=== PATIENT | male | born 1980 | race African-American/Black ===

== ENCOUNTER 2017-10-04 16:42 | Emergency (ER) | payer OTHER ==
[2017-10-04 16:50] VITALS: BP 150/100; PULSE 92; TEMP 98.2; BMI 32.5
[2017-10-04] MEDS ORDERED: DIPHTH,PERTUSS(ACELL),TET 0.5 ML DISP.SYRIN IM ONE (16:51)
--- NOTE | 2017-10-04 16:51 | PDOC ---
Rapid Medical Evaluation Chief Complaint: Injury Time Seen by Provider: 10/04/17 16:49 Medical Evaluation: Allergies Allergy/AdvReac Type Severity Reaction Status Date / Time No Known Allergies Allergy Verified 10/04/17 16:47 10/04/17 16:49 The patient presents with a chief complaint of: Laceration to R hand at work. Cut hand on a screw. Unsure of last tetanus shot. Pt, is right hand dominant I have performed a brief in-person evaluation of this patient; Pertinent physical exam findings: ambulatory, in no respiratory distress. 2cm linear superficial laceration to dorsal aspect of R hand. I have ordered the following: Boostrix The patient will proceed to the ED for further evaluation. Discharge Disposition - Referrals Referrals: Harinder San MD [Primary Care Provider] - - Patient Instructions - Post Discharge Activity
--- NOTE | 2017-10-04 18:48 | PDOC ---
History of Present Illness - General Chief Complaint: Injury Stated Complaint: JOB INJURY Time Seen by Provider: 10/04/17 16:49 History Source: Patient Exam Limitations: No Limitations - History of Present Illness Initial Comments: 10/04/17 18:43 CHIEF COMPLAINT: Laceration to web in between the first and second fingers on the right hand HISTORY OF PRESENT ILLNESS: Patient is a 47-year-old male who denies any significant medical history was at work today and sustained a laceration to the webbing between the first and second fingers in the right hand from a stud and a piece of wood. No active bleeding upon arrival. Unknown last tetanus. Occurred: reports: this afternoon Severity: reports: moderate Method of Injury: reports: other Modifying Factors: improves with: other (laceration) Past History - Past Medical History Allergies/Adverse Reactions: Allergies Allergy/AdvReac Type Severity Reaction Status Date / Time No Known Allergies Allergy Verified 10/04/17 16:47 Home Medications: Ambulatory Orders NK [No Known Home Medication] 10/04/17 COPD: No - Suicide/Smoking/Psychosocial Hx Smoking History: Never smoked Have you smoked in the past 12 months: No Information on smoking cessation initiated: No Hx Alcohol Use: No Drug/Substance Use Hx: No Substance Use Type: None Review of Systems - Review of Systems Constitutional: No: Symptoms Reported Musculoskeletal: No: Symptoms Reported Integumentary: Yes: Other (2 cm laceration to the webbing between the first and second fingers on the right hand) Neurological: No: Symptoms reported Hematologic/Lymphatic: No: Symptoms Reported All Other Systems: Reviewed and Negative *Physical Exam - Vital Signs Last Vital Signs Temp Pulse Resp BP Pulse Ox 98.2 F 92 H 18 150/100 100 10/04/17 16:47 10/04/17 16:47 10/04/17 16:47 10/04/17 16:47 10/04/17 16:47 - Physical Exam General Appearance: Yes: Appropriately Dressed. No: Apparent Distress Respiratory/Chest: positive: Lungs Clear, Normal Breath Sounds Cardiovascular: positive: Regular Rhythm, Regular Rate Musculoskeletal: positive: Normal Inspection Extremity: positive: Normal Capillary Refill, Normal Inspection, Normal Range of Motion, Tender (tender between the first and second fingers of right hand), Other (3 cm laceration to the bedding between the first and second fingers on the right hand). negative: Swelling, Erythema, Inflammation Integumentary: positive: Other (as noted above). negative: Erythema, Swelling, Ecchymosis, Bruising Neurologic: positive: Alert, Normal Mood/Affect, Normal Response, Motor Strength 5/5 Procedures - Laceration/Wound Repair Right Hand Wound Length: 2.6 to 5.0 cm Wound Explored: clean Wound's Depth, Shape: linear Irrigated w/ Saline: Yes Betadine Prep: Yes Anesthesia: 1% Lidocaine Amount of Anesthetic (ccs): 3 Wound Repaired With: Sutures Suture Size/Type: 5:0 Number of Sutures: 4 Layer Closure: No Progress: 10/04/17 18:46 Bacitracin sterile dressing applied, ED Treatment Course - Medications Given in the ED: ED Medications Discontinued Medications Generic Name Dose Route Start Last Admin Trade Name Freq PRN Reason Stop Dose Admin Diphtheria/Tetanus/Acell Pertussis 0.5 ml 10/04/17 16:51 10/04/17 18:36 Boostrix - IM 10/04/17 16:52 0.5 ml .ONCE ONE Administration Medical Decision Making - Medical Decision Making 10/04/17 18:45 A/P: Laceration to the webbing between the first and second fingers of the right hand, see procedure note, follow-up instructions given. To monitor area for any increased redness swelling or signs of infection. *DC/Admit/Observation/Transfer Diagnosis at time of Disposition: Laceration of hand Qualifiers: Encounter type: initial encounter Foreign body presence: without foreign body Laterality: right Qualified Code(s): S61.411A - Laceration without foreign body of right hand, initial encounter - Discharge Dispostion Disposition: HOME Condition at time of disposition: Stable Admit: No - Referrals Referrals: Harinder San MD [Primary Care Provider] - - Patient Instructions Additional Instructions: Keep area clean dry and intact Keep dressing on until tomorrow If any increased bleeding through the dressing return immediately to emergency department Keep area clean dry and intact bacitracin x3 days, then let it dry out Please return in 7-10 days for suture removal. Please return immediately to emergency department with any increased redness, swelling, signs of infection - Post Discharge Activity Forms/Work/School Notes: Back to Work
== END 2017-10-04 19:20 | disposition home or self-care (01) ==
LOC: JERFT 16:42
PROC: 3E0234Z Introduction of Serum, Toxoid and Vaccine into Muscle, Percutaneous Approach (ICD-10-PCS; principal; 2017-10-04)
PROC: 0HQFXZZ Repair Right Hand Skin, External Approach (ICD-10-PCS; 2017-10-04)
DX: S61.411A Laceration without foreign body of right hand, initial encounter (principal); W26.8XXA Contact with other sharp object(s), not elsewhere classified, initial encounter; Y93.H3 Activity, building and construction; Y92.61 Building [any] under construction as the place of occurrence of the external cause; Y99.0 Civilian activity done for income or pay
CPT/HCPCS: 90715; 99281-25

== ENCOUNTER 2018-08-18 16:48 | Emergency (ER) | payer OTHER ==
[2018-08-18] MEDS ORDERED: ACETAMINOPHEN 325 MG TABLET (FP) PO ONE (17:02)
--- NOTE | 2018-08-18 17:02 | PDOC ---
Rapid Medical Evaluation Medical Evaluation: Allergies Allergy/AdvReac Type Severity Reaction Status Date / Time No Known Allergies Allergy Verified 10/11/17 12:56 I have performed a brief in-person evaluation of this patient. The patient presents with a chief complaint of: C/O fever, cough, body aches, post-tussive since last night (Tmax 102.9); took Advil at 8 AM today Pertinent physical exam findings: In NAD I have ordered the following: Flu swab, tylenol The patient will proceed to the ED for further evaluation. 08/18/18 17:00
[2018-08-18 17:05] VITALS: BP 143/67; PULSE 119; TEMP 102.4; BMI 32.5
[2018-08-18] MEDS ORDERED: ACETAMINOPHEN 325 MG TABLET (FP) ONE (17:06)
[2018-08-18] MEDS ORDERED: IBUPROFEN 400 MG TABLET (FP) PO ONE ×2 (17:52→17:55)
--- NOTE | 2018-08-18 17:56 | PDOC ---
History of Present Illness - General Chief Complaint: Cold Symptoms Stated Complaint: FEVER Time Seen by Provider: 08/18/18 17:00 - History of Present Illness Initial Comments: 08/18/18 17:53 38-year-old male without comorbidities presents for evaluation of fever chills and body aches times one day Past History - Past Medical History Allergies/Adverse Reactions: Allergies Allergy/AdvReac Type Severity Reaction Status Date / Time No Known Allergies Allergy Verified 10/11/17 12:56 Home Medications: Ambulatory Orders Oseltamivir Phosphate [Tamiflu] 75 mg PO BID #10 capsule 08/18/18 COPD: No Kidney Stones: No - Immunization History Immunization Up to Date: Yes - Suicide/Smoking/Psychosocial Hx Smoking History: Never smoked Have you smoked in the past 12 months: No Information on smoking cessation initiated: No Hx Alcohol Use: No Drug/Substance Use Hx: No Substance Use Type: None Review of Systems - Review of Systems Constitutional: Yes: Chills, Diaphoresis, Fever, Malaise, Night Sweats, Weakness HEENTM: Yes: Nose Congestion Respiratory: Yes: Cough *Physical Exam - Vital Signs Last Vital Signs Temp Pulse Resp BP Pulse Ox 102.4 F H 119 H 18 143/67 98 08/18/18 17:02 08/18/18 17:02 08/18/18 17:02 08/18/18 17:02 08/18/18 17:02 - Physical Exam Comments: 08/18/18 17:53 HEAD: NC/AT EYES: Conjuntiva clear Ears: Canals and TM's normal NOSE: No d/c THROAT: Moist mucous membrances, oral pharanx clear, uvula midline NECK: Supple without adenopathy CARDIAC: S1 S2 LUNGS: CTA Full and Equal breath sounds ABDOMEN: Soft NT ND MS: Full ROM in all joints without edema NEUROLOGIC: No gross sensory or motor deficits, NVID SKIN: Normal color and temperature no lesions or rashes Moderate Sedation - Procedure Monitoring Vital Signs: Procedure Monitoring Vital Signs Temperature 102.4 F H 08/18/18 17:02 Pulse Rate 119 H 08/18/18 17:02 Respiratory Rate 18 08/18/18 17:02 Blood Pressure 143/67 08/18/18 17:02 O2 Sat by Pulse Oximetry (%) 98 08/18/18 17:02 ED Treatment Course - Medications Given in the ED: ED Medications Discontinued Medications Generic Name Dose Route Start Last Admin Trade Name Alis PRN Reason Stop Dose Admin Acetaminophen 975 mg 08/18/18 17:02 08/18/18 17:11 Tylenol - PO 08/18/18 17:03 975 mg ONCE ONE Administration Medical Decision Making - Medical Decision Making 08/18/18 17:53 We'll treat for fluid based on symptoms and presentation *DC/Admit/Observation/Transfer Diagnosis at time of Disposition: Influenza - Discharge Dispostion Disposition: HOME Condition at time of disposition: Stable Decision to Admit order: No - Prescriptions Prescriptions: Oseltamivir Phosphate [Tamiflu] 75 mg PO BID #10 capsule - Referrals Referrals: Geoff Harrington [Non Staff, Medical] - - Patient Instructions Additional Instructions: Return to the emergency room should symptoms worsen or go unresolved. Please take Tylenol and Motrin [id number] for fever and body aches as well as chills. Take the Tamiflu as directed follow-up with internal medicine in one to 2 days for further evaluation and treatment options - Post Discharge Activity Forms/Work/School Notes: Back to Work
== END 2018-08-18 17:58 | disposition home or self-care (01) ==
LOC: JERFT 16:48
DX: J11.1 Influenza due to unidentified influenza virus with other respiratory manifestations (principal)
CPT/HCPCS: 87804; 99281-25